=== PATIENT | male | born 1950 | race Caucasian/White ===

== ENCOUNTER 2016-05-04 08:14 | Day surgery (SDC) | payer MEDICARE, BC ==
--- NOTE | ~2016-05-04 | EGD ---
EGD REPORT [facility] [address] [place]. [address] NAME: AV NEWBERRY : [birth year] STATUS : REG [facility] PAT#: [id number] AGE: 65 ADM/REG DATE : 05/04/16 MR#: [id number] REPORT SERV DATE: 05/04/16 DICTATED BY: BETTY CORTES. 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 Patient Profile: Informed consent was obtained from the patient by me prior to the procedure. Risks, benefits, and alternatives were discussed including the risk of bleeding, perforation, infection, reaction to medicine, missed lesion, and cardiopulmonary complications. Referring MD: PILLO MUÑOZ Medicines: Monitored Anesthesia Care Complications: No immediate complications. Procedure: Pre-Anesthesia Assessment: - ASA Grade Assessment: II - A patient with mild systemic disease. After I obtained informed consent, the scope was passed under direct vision. Throughout the procedure, the patient's blood pressure, pulse, and oxygen saturations were monitored continuously. The CF [id number] was introduced through the anus and advanced to the cecum, identified by appendiceal orifice and ileocecal valve. The colonoscope was slowly withdrawn with careful examination all mucosal surfaces including specific attention around flexures and tip deflection behind folds; retroflexion performed in rectum. The colonoscopy was performed without difficulty. The patient tolerated the procedure well. The quality of the bowel preparation was adequate. The ileocecal valve, appendiceal orifice and rectum were photographed. Findings: A flat linear polyp was found in the transverse colon at a site of previous tattooing at 55 cm proximal to the anus. The polyp was 10 mm in size. The polyp was removed with a cold biopsy forceps in multiple pieces. Resection and retrieval were complete. A sessile polyp was found in the descending colon. The polyp was 8 mm in size. The polyp was removed with a cold snare. Resection and retrieval were complete. There was a medium-sized lipoma, 15 mm in diameter, in the sigmoid colon EGD REPORT [address] [address] NAME: AV NEWBERRY JR : [birth year] STATUS : REG [facility] PAT#: [id number] AGE: 65 ADM/REG DATE : 05/04/16 MR#: [id number] REPORT SERV DATE: 05/04/16 DICTATED BY: BETTY CORTES DATE: 05/04/16 REPORT STATUS : Draft TRANSCRIBED BY: [employer] DATE: 05/04/16 and at 30 cm proximal to the anus; soft with positive pillow sign and normal overlying mucosa with yellow hue. Biopsies were taken with a cold forceps for histology. Multiple medium-mouthed diverticula were found in the sigmoid colon. Internal hemorrhoids were found during retroflexion and were mild. Impression: - One 10 mm polyp in the transverse colon at 55 cm proximal to the anus. Resected and retrieved. - One 8 mm polyp in the descending colon. Resected and retrieved. - Medium-sized lipoma in the sigmoid colon and at 30 cm proximal to the anus. Biopsied. - Diverticulosis in the sigmoid colon. - Internal hemorrhoids. Recommendation: - Patient has a contact number available for emergencies. The signs and symptoms of potential delayed complications were discussed with the patient. Return to normal activities tomorrow. Written discharge instructions were provided to the patient. - Regular diet. - Continue present medications. - Await pathology results. - Repeat colonoscopy for surveillance based on pathology results. - [facility] clinic f/u visit re: cirrhosis. Procedure Code(s): --- Professional --- 29520, Colonoscopy, flexible, proximal to splenic flexure; with removal of tumor(s), polyp(s), or other lesion(s) by snare technique 05509, 59, Colonoscopy, flexible, proximal to splenic flexure; with biopsy, single or multiple Diagnosis Code(s): --- Professional --- D12.4, Benign neoplasm of descending colon D12.3, Benign neoplasm of transverse colon D12.6, Benign neoplasm of colon, unspecified D17.5, Benign lipomatous neoplasm of intra-abdominal organs K64.8, Other hemorrhoids K57.30, Diverticulosis of large intestine without perforation or abscess without bleeding Z86.010, Personal history of colonic polyps CPT copyright 2013 [employer]. All rights reserved. EGD REPORT [facility] [address] [address] NAME: AV NEWBERRY JR : [birth year] STATUS : REG [facility] PAT#: [id number] AGE: 65 ADM/REG DATE : 05/04/16 MR#: [id number] REPORT SERV DATE: 05/04/16 DICTATED BY: BETTY CORTES DATE: 05/04/16 REPORT STATUS : Draft TRANSCRIBED BY: [employer] DATE: 05/04/16 The codes documented in this report are preliminary and upon support assistant review may be revised to meet current compliance requirements. BETTY CORTES MD 05/04/2016 10:23 AM This report has been signed electronically. Number of Addenda: 0 Note Initiated On: 05/04/2016 9:47 AM Scope Withdrawal Time 0 hours 16 minutes 40 seconds [place] [id number]
[~2016-05-04 08:14] MED LIST: ACIPHEX PO; ASAB PO; B COMPLETE PO; COREG3 PO; CRESTOR10 PO; CRESTOR20 MG PO; DIOV80 PO; DIOVAN40 MG PO; FERROUS SULF325 M1 PO; METANX PO; NITROSTAT0.4 MG SL; NORV25 PO; TRAMADOL PO; ULTRAM ER300 MG PO; VITAMIN D31000 UNIT PO; Z100 PO; ZOL100 PO
== END 2016-05-04 23:59 | disposition home or self-care (01) ==
LOC: DMU 08:14
PROVIDERS: Internal Medicine Gastroenterology
PROC: 0DBM8ZZ Excision of Descending Colon, Via Natural or Artificial Opening Endoscopic (ICD-10-PCS; 2016-05-04)
PROC: 0DBL8ZZ Excision of Transverse Colon, Via Natural or Artificial Opening Endoscopic (ICD-10-PCS; principal; 2016-05-04 09:45)
PROC: 0DBN8ZX Excision of Sigmoid Colon, Via Natural or Artificial Opening Endoscopic, Diagnostic (ICD-10-PCS; 2016-05-04 09:45)
DX: D12.4 Benign neoplasm of descending colon (principal); K63.5 Polyp of colon; K57.30 Diverticulosis of large intestine without perforation or abscess without bleeding; K64.8 Other hemorrhoids; K21.9 Gastro-esophageal reflux disease without esophagitis; D17.5 Benign lipomatous neoplasm of intra-abdominal organs; K74.60 Unspecified cirrhosis of liver; I10 Essential (primary) hypertension; E78.00 Pure hypercholesterolemia, unspecified; F41.9 Anxiety disorder, unspecified; F32.9 Major depressive disorder, single episode, unspecified; H91.90 Unspecified hearing loss, unspecified ear; M10.9 Gout, unspecified; G47.33 Obstructive sleep apnea (adult) (pediatric); E66.9 Obesity, unspecified; Z68.30 Body mass index [BMI] 30.0-30.9, adult; Z87.891 Personal history of nicotine dependence; Z86.010 Personal history of colon polyps; Z96.1 Presence of intraocular lens; Z98.41 Cataract extraction status, right eye; Z79.891 Long term (current) use of opiate analgesic; Z79.82 Long term (current) use of aspirin; Z79.899 Other long term (current) drug therapy; Z98.890 Other specified postprocedural states
CPT/HCPCS: 88305